=== PATIENT | female | born 1985 | race Hispanic/Latino ===

== ENCOUNTER 2018-05-22 17:26 | Emergency (ER) | payer OTHER ==
[~2018-05-22] VITALS: Ht 170.2 cm; Wt 90.7 kg
[2018-05-22] MEDS ORDERED: POTASSIUM CHLORIDE 20 MEQ TAB CR PO NR (18:47)
--- NOTE | 2018-05-22 19:29 | Diagnostic Imaging Report ---
EXAMINATION: CXR 2 VIEW - HOPD INDICATION: Chest pain COMPARISON: None FINDINGS: PA and lateral views TUBES and LINES: None. LUNGS: Lungs are well inflated. Lungs are clear. There is no evidence of pneumonia or pulmonary edema. PLEURA: No pleural effusion or pneumothorax. HEART AND MEDIASTINUM: The cardiomediastinal silhouette is unremarkable. BONES AND SOFT TISSUES: No acute osseous lesion. Soft tissues are unremarkable. UPPER ABDOMEN: No free air under the diaphragm. IMPRESSION: No acute thoracic abnormality. Signed by: DR. Kevin Bustos MD on 05/22/2018 7:26 PM
== END 2018-05-22 19:54 | disposition home or self-care (01) ==
LOC: FSED 17:26
DX: R07.89 Other chest pain (principal); E87.6 Hypokalemia; K52.9 Noninfective gastroenteritis and colitis, unspecified
CPT/HCPCS: 71046; 80053; 82553; 84484; 85025; 85379; 93005; 99284